=== PATIENT | female | born 1995 | race Caucasian/White ===

== ENCOUNTER 2020-04-24 14:07 | Emergency (ER) | payer MEDICAID ==
[~2020-04-24] VITALS: Ht 165.1 cm; Wt 39.9 kg
--- NOTE | 2020-04-24 14:18 | NUR ---
DR PAGE AT BEDSIDE
--- NOTE | 2020-04-24 14:19 | NUR ---
BIB 41 AND [employer] OFFICERS, PATIENT AGITATED AND VERBALLY ABUSIVE, BANGING ON RESIDENTIAL DOORS. TO ER BED 11, HOOKED TO MONITOR. KEPT SAFE AD COMFORTABLE. AWAITING MD ACEVEDO
[2020-04-24] MEDS ORDERED: OLANZAPINE 10 MG VIAL IM ONE ×2 (14:27→14:30)
--- NOTE | 2020-04-24 14:45 | NUR ---
bibra41 and [employer], agitated, banging on residential doors. On room air, breathing unlabored. Connected to the monitor and pulse ox. Sitter at bedside for constant monitoring. Will continue to monitor accordingly.
--- NOTE | 2020-04-24 14:51 | NUR ---
URINE SAMPLE COLLECTED AND SENT TO LAB
--- NOTE | 2020-04-24 15:03 | NUR ---
RAPID COVID SWAB DONE AND SENT TO LAB
--- NOTE | 2020-04-24 15:12 | NUR ---
placed on 5150 hold by [employer] Officer Dhruv for DTS and being gravely disabled
[2020-04-24 15:35] LABS: BILIRUBIN,URINE MODERATE (NEGATIVE); COLOR,URINE YELLOW (YELLOW); LEUKOCYTE ESTERASE ,URINE NEGATIVE (NEGATIVE); NITRITE, URINE NEGATIVE (NEGATIVE); PROTEIN,URINE 30 mg/dl (NEGATIVE); UGLUCOSE NEGATIVE (NEGATIVE); UROBILINOGEN,URINE 0.2 EU/dL (0.2)
[2020-04-24 15:43] LABS: BASOPHILS % (AUTO) 0.1 % (0.0-2.0); HEMATOCRIT 39 % (33-45); LYMPHOCYTES # (AUTO) 0.5 /CMM (0.8-4.8); LYMPHOCYTES % (AUTO) 3.4 % (20.0-44.0); MEAN CORPUSCULAR HGB CONC 34 g/dl (31.0-36.0); MEAN CORPUSCULAR VOLUME 98 fL (82-100); MONOCYTES # (AUTO) 0.6 /CMM (0.1-1.30); NEUTROPHILS # (AUTO) 13.9 /CMM (1.8-8.9); NEUTROPHILS % (AUTO) 92.5 % (43.0-81.0); PLATELET COUNT (AUTO) 213 /CMM (150-450); RED BLOOD CELL COUNT(AUTO) 3.93 MIL/uL (4.0-5.2)
[2020-04-24 16:00] LABS: BACTERIA,URINE RARE /HPF (None Seen); RBC,URINE 0-2 /HPF (0-2); WBC,URINE 0-2 /HPF (0-3)
[2020-04-24 16:01] LABS: MUCUS,URINE Moderate /LPF (None Seen); SQUAMOUS EPITHELIAL CELL,UR 0-2 /HPF (None Seen)
[2020-04-24 16:18] LABS: CALCIUM, SERUM 9.5 mg/dL (8.5-10.1); CARBON DIOXIDE 23 mmol/L (21-32); CHLORIDE 105 mmol/L (98-107); CREATININE 0.9 mg/dL (0.6-1.3); GLUCOSE 99 mg/dL (74-106); SODIUM SERUM 144 mmol/L (136-145); UREA NITROGEN, BLOOD 13 mg/dL (7-18)
--- NOTE | 2020-04-24 16:24 | NUR ---
TAVO MCINTYRE: [phone] (PARTNER)
[2020-04-24 16:30] LABS: ALANINE AMINOTRANSFERASE 12 U/L (12-78); ALBUMIN 4.5 g/dL (3.4-5.0); ALCOHOL, BLOOD < 3 mg/dL (0-0); ALKALINE PHOSPHATASE 56 U/L (46-116); ASPARTATE AMINOTRANSFERASE 14 U/L (15-37); BILIRUBIN,DIRECT 0.1 mg/dL (0.0-0.2); BILIRUBIN,TOTAL 0.7 mg/dL (0.2-1.0); TOTAL PROTEIN, SERUM 7.4 g/dL (6.4-8.2)
[2020-04-24 16:31] LABS: ACETAMINOPHEN < 2 ug/ml (10-30)
--- NOTE | 2020-04-24 17:50 | NUR ---
ALTHEA GUTIÉRREZ [phone] WILL COME TO SEE PT.
--- NOTE | 2020-04-24 19:05 | NUR ---
patient in bed, awake. calmer and cooperative at this time. will continue to monitor.
--- NOTE | 2020-04-24 19:36 | NUR ---
REPORT GIVEN TO PEDRO BRYSON FOR JW
--- NOTE | 2020-04-24 20:03 | NUR ---
[facility] crisis team at bedside
[2020-04-24] MEDS ORDERED: LORAZEPAM 1 MG TABLET ONE (22:48)
[2020-04-24] MEDS ORDERED: LORAZEPAM 1 MG TABLET PO ONE (23:00)
--- NOTE | 2020-04-25 00:04 | NUR ---
FOOD TRAY PROVIDED TO PT REQUESTED. PT CALM AND COOPERATIVE AT THIS TIME. 1:1 SITTER REMAINS AT BEDSIDE. CALL LIGHT WITHIN REACH.
--- NOTE | 2020-04-25 02:36 | NUR ---
PT ASLEEP, NO ACUTE DISTRESS NOTED, ERSP EVEN AND UNLABORED. CALL LIGHT WITHIN REACH. 1:1 SITTER REMAINS AT BEDSIDE. WILL CONTINUE TO MONITOR PT CLOSELY.
--- NOTE | 2020-04-25 06:11 | NUR ---
MARLA MANAGER AIR AT BEDSIDE TO RE-EVAL PT. PT CALM AND COOPERATIVE AT THIS TIME.
[2020-04-25] MEDS ORDERED: LORA-259 PO (06:49)
--- NOTE | 2020-04-25 07:07 | NUR ---
Patient discharged to home in stable condition. Written and verbal after care instructions given. Patient verbalizes understanding of instruction.
[2020-04-25 07:08] VITALS: BP 128/67
== END 2020-04-25 07:08 | disposition home or self-care (01) ==
LOC: ER 14:26
DX: R46.2 Strange and inexplicable behavior (principal); F19.10 Other psychoactive substance abuse, uncomplicated; Z20.822 Contact with and (suspected) exposure to COVID-19
CPT/HCPCS: 36415; 80048; 80076; 80299; 80307; 80320; 81001; 84703; 85025; 87426; 96372; 99285; C9803; J3490; G0480